=== PATIENT | female | born 1960 | race Caucasian/White ===

== ENCOUNTER 2025-02-21 18:36 | Emergency (ER) | payer MEDICARE, OTHER, SELFPAY ==
[2025-02-21 18:40] VITALS: BP 131/76
[2025-02-21] MEDS: NORCO 5/325 1 TABLET PO (20:49)
[2025-02-21] MEDS: ASPIRIN 325 MG PO (20:50)
--- NOTE | 2025-02-21 22:54 | ED.MUSCINJ ---
HPI-Injury
General
Chief Complaint: Musculo-Skeletal Complaint
Source: patient
Exam Limitations: none
Time Seen by Provider: 02/21/25 19:00
Nursing documentation reviewed up to this point in time: agreed with
History of Present Illness-Injury
Is this injury a work related problem?: No
Is pt an associate of [facility]?: No
Initial Injury comments:
Patient states she stepped into a pothole and fell. Denies hitting her head, no LOC. COmplains of pain to bilateral ankles. Brought to ED by spouse for eval. Incident occurred tonight.
Past History
Past History
ED Past Medical History: Psychiatric (anxiety) and Other (PE)
ED Past Surgical History: Gynecological (d and c)
Social History
Tobacco: Non-smoker
Alcohol: None
Drug: None
Personal:
Living: with family
Employment: Employed
Review of Systems
Review of Systems
Allergies reviewed?: Yes
All Other Systems: ROS reviewed and negative except as documented in HPI and ROS
Constitutional: Reports no symptoms
EENT: Reports no symptoms
Respiratory: Reports no symptoms
Cardiac: Reports no symptoms
ABD/GI: Reports no symptoms
Musculoskeletal: Reports joint pain (bilateral ankle pain and swelling)
Skin: Reports no symptoms
Neurological: Reports no symptoms
Psychiatric: Reports no symptoms
Musculoskeletal Injury Exam
Musculoskeletal Injury Exam
Right Lateral Ankle:
Pain with Movement?: Moderate
Tender to palpation?: Moderate
Soft tissue swelling?: Moderate
External deformity and angulation?: None
Joint effusion?: None
Contusion?: None
Hematoma-local bleeding into tissue?: None
Strain- Sprain- Tear (Connective tissue injury)?: Moderate
Crepitus with movement?: No
Joint instability?: No
Malalignment/deformity?: No
Range of motion: Limited
Distal skin color and temperature: normal-warm & good color
Capillary Refill: normal
Normal distal neurovascular exam?: No
Peripheral Pulses: posterior tibial (right): 3+ and dorsalis pedis (right): 3+
Left Lateral Ankle:
Pain with Movement?: Moderate
Tender to palpation?: Moderate
Soft tissue swelling?: Moderate
External deformity and angulation?: None
Joint effusion?: None
Contusion?: None
Hematoma-local bleeding into tissue?: None
Strain- Sprain- Tear (Connective tissue injury)?: Moderate
Crepitus with movement?: No
Joint instability?: No
Malalignment/deformity?: No
Range of motion: Limited
Distal skin color and temperature: normal-warm & good color
Capillary Refill: normal
Normal distal neurovascular exam?: Yes
Peripheral Pulses: posterior tibial (left): 3+ and dorsalis pedis (left): 3+
Phy Exam
General Physical Exam
General Presentation: mild distress
General age: appears stated age
General Skin: warm and dry
General Habitus: normal
General Mental: alert
Musculoskeletal Exam
Musculoskeletal Exam: neuro vasc intact and other (Bilaterally- achilles intact, no tenderness base of 5th, proximal tib/fib )
Skin Exam
Skin Exam: normal color, warm/dry and no rash
Psychiatric Exam
Psychiatric Exam: normal mood/affect
Injury Course
Orders/Labs/Results
Orders:
Orders
02/21/25 18:39
Ankle, Right 3 view CR [CR Ankle - Right Min 3 Views *] Urgent
Comment:
Reason For Exam: pain, fall
CR Ankle - Left Min 3 Views Urgent
Comment:
Reason For Exam: pain, fall
02/21/25 20:34
Air Splint Right-Treatment ONCE
Ortho Boot Left- Treatment ONCE
Short or tall?: Tall
Treatment- Walker ONCE
02/21/25 20:43
Hydrocodone 5/APAP 325 [[place] 5/325] 1 tablet PO NOW STA
02/21/25 20:46
Aspirin 325 mg PO NOW STA
*Radiology
Radiology exam reviewed: radiology read reviewed
*Pulse Oximetry
SaO2: 96
Oxygen Mode of Delivery: Room air
Patient hypoxic: no
*Critical Care Note
Total Time (30-74mins, 75-104mins- exclusive of procedures): Not Applicable
Update Note
Update Note:
Patient to ED after falling tonight. COmplains of pain to bilateral ankles. Xray report of distal fib fx on left, avusion fx of lateral calcaneus and talus on right. Case discussed with Dr. Garber. Patient placed in air cast on right,
orthoboot on left. Discharged home with walker. Given rx for wheelchair. Instructed to ice, keep ankles elevated. 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 SHe was placed on coumadin for 6 mos.
Denies any issues since. Dr. Garber aware. Recommedns Asa 325mg bid. First dose given in ED. WIll dishcarge home and she zoe follow upw tih Dr. Garber next week.
ED Attending Note
-
Portions of this chart may have been created with voice recognition software.� Occasional wrong word or��sound alike� substitutions may have occurred due to the inherent limitations of voice recognition software.
Discharge Plan
Departure
Patient Disposition: Home (Routine Discharge)
Date of Disposition: 02/21/25
Time of Disposition: 20:45
Patient with high blood pressure during this ER visit?: No
Condition: Good
Covid-19: Not Applicable
Discharge Problem:
Bilateral ankle fractures
Instructions: Ankle Fracture (DC), Ibuprofen, Using Cold for Pain
Prescriptions:
New
hydrocodone-acetaminophen 5-325 mg tablet
1 tab PO Q4H PRN (Reason: Pain) Qty: 20 0RF
aspirin 325 mg capsule
325 mg PO BID Qty: 60 0RF
No Action
diazepam 5 MG tablet
5 mg PO DAILYPRN PRN (Reason: sleep difficulty) Qty: 5 0RF
Rx Instructions:
use at night for sleep as needed
Referrals:
Radha Garber I., DO [[facility]] - Call in 1-3 days for appt
UNKNOWN - PT DOES,NOT KNOW [Family Provider]
Interventions
Interventions:
*Risk Screen - Suicide Last Done: 02/21/25 20:00
*General Assessment Last Done: 02/21/25 20:00
*Neglect/Abuse Screening Last Done: 02/21/25 20:00
*Nursing Disposition Last Done: 02/21/25 21:09
ED-Musculoskeletal Assessment Last Done: 02/21/25 19:03
Discharge Date and Time
Discharge Date/Time: 02/21/25 21:09
Print Language: SUDANESE
== END 2025-02-21 21:09 | disposition home or self-care (01) ==
LOC: EMR 18:36
PROVIDERS: EMERGENCY PHYSICIAN Emergency Medicine
DX: S82.832A Other fracture of upper and lower end of left fibula, initial encounter for closed fracture (principal); S82.52XA Displaced fracture of medial malleolus of left tibia, initial encounter for closed fracture; S92.002A Unspecified fracture of left calcaneus, initial encounter for closed fracture; S92.191A Other fracture of right talus, initial encounter for closed fracture; S93.431A Sprain of tibiofibular ligament of right ankle, initial encounter; W19.XXXA Unspecified fall, initial encounter
CPT/HCPCS: 99283; 73610